=== PATIENT | male | born 1980 | race Two or more races ===

== ENCOUNTER 2018-03-02 11:17 | Emergency (ER) | payer OTHER ==
[~2018-03-02] VITALS: Ht 182.9 cm; Wt 75.0 kg
[2018-03-02] MEDS ORDERED: SERT50TA12 PO (12:47)
[2018-03-02 12:49] VITALS: BP 150/85
== END 2018-03-02 13:50 | disposition home or self-care (01) ==
LOC: EMS 11:19
DX: F15.10 Other stimulant abuse, uncomplicated (principal); F12.90 Cannabis use, unspecified, uncomplicated
CPT/HCPCS: 99285